=== PATIENT | male | born 1975 | race African-American/Black ===

== ENCOUNTER 2018-11-26 21:33 | Emergency (ER) | payer BC ==
[~2018-11-26] VITALS: Ht 172.7 cm; Wt 88.9 kg
[2018-11-26 22:14] VITALS: BP 183/119
[2018-11-26] MEDS ORDERED: ORPH100T PO (23:27)
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
== END 2018-11-26 23:40 | disposition home or self-care (01) ==
LOC: ER 21:33
DX: S16.1XXA Strain of muscle, fascia and tendon at neck level, initial encounter (principal); M54.5 Low back pain; J45.909 Unspecified asthma, uncomplicated; V43.52XA Car driver injured in collision with other type car in traffic accident, initial encounter; Y93.89 Activity, other specified; Y92.410 Unspecified street and highway as the place of occurrence of the external cause; Y99.8 Other external cause status
CPT/HCPCS: 99283

== ENCOUNTER 2020-12-22 15:28 | Emergency (ER) | payer BC ==
[~2020-12-22 15:28] MED LIST: ORPH100T PO
[2020-12-22] MEDS ORDERED: amLODIPine BESYLATE 5 MG TABLET ONE (16:25)
[2020-12-22] MEDS ORDERED: cloNIDine HCL 0.1 MG TABLET ONE (16:25)
== END 2020-12-22 17:30 | disposition home or self-care (01) ==
LOC: ER 15:28
DX: I10 Essential (primary) hypertension (principal); R51.9 Headache, unspecified
CPT/HCPCS: 99283